=== PATIENT | female | born 1985 | race Caucasian/White ===

== ENCOUNTER 2016-10-21 23:52 | Emergency (ER) | payer BC, MEDICAID ==
[~2016-10-21] VITALS: Ht 165.1 cm; Wt 61.2 kg
--- NOTE | 2016-10-22 00:01 | NUR ---
31 yo female bb ra. pt is alert x 3, states she is homeless. per ems pt walked into store, saying she wants to hurt herself. EMS trasnported to [facility]. pt ambulated to er bed 9 with steady gait, skin warm and dry, rr even and unlabored. awaiting orders from provider, will continue to monitor.
--- NOTE | 2016-10-22 00:04 | NUR ---
urine sample obtained and sent to lab
--- NOTE | 2016-10-22 00:08 | NUR ---
patient belongings taken from pt and kept at nursing station
--- NOTE | 2016-10-22 00:10 | NUR ---
MEKA STEWART MD at bed side for eval
[2016-10-22] MEDS ORDERED: LORAZEPAM 1 MG TABLET ONE (01:10)
--- NOTE | 2016-10-22 01:13 | NUR ---
RECEIVED PT, PT TRANSFERED TO ER BED 6. PT STATES "I WANT TO KILL MY SELF BY ASSISTED SUICIDE." PT DENIES HI. PT AOX4 RR EVEN AND UNLABORED. NO SOB NOTED. NAD NOTED. NO NVD AT THIS TIME. PT IN GOWN AND CONNECTED TO MONITOR.
--- NOTE | 2016-10-22 01:14 | NUR ---
PT DENIES ANY PLANS AT THIS TIME.
--- NOTE | 2016-10-22 01:15 | NUR ---
PT NOTED WITH ANNA ARM DISCOLORATION AND RIGHT FA HEALED ABSCESS.
--- NOTE | 2016-10-22 01:17 | NUR ---
LAB AT BEDSIDE FOR BLOOD DRAW.
[2016-10-22 01:30] LABS: BASOPHILS # (AUTO) 0.1 /CMM (0.0-0.2); BASOPHILS % (AUTO) 0.8 % (0.0-2.0); EOSINOPHILS # (AUTO) 0.3 /CMM (0.0-0.7); EOSINOPHILS % (AUTO) 4.8 % (0.0-6.0); HEMATOCRIT 35 % (33-45); HEMOGLOBIN 12.1 g/dL (11.5-14.8); LYMPHOCYTES # (AUTO) 2.6 /CMM (0.8-4.8); LYMPHOCYTES % (AUTO) 38.3 % (20.0-44.0); MEAN CORPUSCULAR HEMOGLOBIN 31 PG (26.0-33.0); MEAN CORPUSCULAR HGB CONC 35 g/dl (31.0-36.0); MEAN CORPUSCULAR VOLUME 90 fL (82-100); MONOCYTES # (AUTO) 0.5 /CMM (0.1-1.30); NEUTROPHILS # (AUTO) 3.3 /CMM (1.8-8.9); NEUTROPHILS % (AUTO) 49.1 % (43.0-81.0); PLATELET COUNT (AUTO) 444 /CMM (150-450); RDW COEFFICIENT OF VARIATION 12.2 (11.5-15.0); RED BLOOD CELL COUNT(AUTO) 3.89 MIL/uL (4.0-5.2); WHITE BLOOD COUNT (AUTO) 6.7 K/uL (4.3-11.0)
[2016-10-22] MEDS ORDERED: LORAZEPAM 1 MG TABLET PO ONE (01:30)
[2016-10-22 01:47] LABS: ALANINE AMINOTRANSFERASE 22 U/L (12-78); ALKALINE PHOSPHATASE 66 U/L (46-116); ASPARTATE AMINOTRANSFERASE 18 U/L (15-37); BILIRUBIN,DIRECT 0.1 mg/dL (0.0-0.2); BILIRUBIN,TOTAL 0.4 mg/dL (0.2-1.0); CALCIUM, SERUM 8.5 mg/dL (8.5-10.1); CARBON DIOXIDE 27 mmol/L (21-32); CHLORIDE 106 mmol/L (98-107); CREATININE 0.8 mg/dL (0.6-1.3); GLUCOSE 88 mg/dL (74-106); POTASSIUM 3.3 mmol/L (3.5-5.1); SODIUM SERUM 142 mmol/L (136-145); TOTAL PROTEIN, SERUM 7.5 g/dL (6.4-8.2); UREA NITROGEN, BLOOD 4 mg/dL (7-18)
[2016-10-22 01:53] LABS: ACETAMINOPHEN 0 ug/ml (10-30); SALICYLATE 1.6 mg/dL (2.8-20.0)
[2016-10-22 01:54] LABS: ALCOHOL, BLOOD < 3 mg/dL (0-0)
--- NOTE | 2016-10-22 03:23 | NUR ---
Patient is resting comfortably in bed with eyes closed. Easily aroused. VSS
[2016-10-22 03:51] LABS: APPEARANCE,URINE CLEAR (CLEAR); BILIRUBIN,URINE NEGATIVE (NEGATIVE); BLOOD, URINE 3+ Ery/uL (NEGATIVE); COLOR,URINE YELLOW (YELLOW); KETONES,URINE NEGATIVE (NEGATIVE); LEUKOCYTE ESTERASE ,URINE NEGATIVE (NEGATIVE); NITRITE, URINE NEGATIVE (NEGATIVE); PROTEIN,URINE NEGATIVE (NEGATIVE); UGLUCOSE NEGATIVE (NEGATIVE); UROBILINOGEN,URINE 0.2 EU/dL (0.2)
[2016-10-22 03:56] LABS: BACTERIA,URINE None seen /HPF (None Seen); RBC,URINE 0-2 /HPF (0-2); SQUAMOUS EPITHELIAL CELL,UR Moderate /HPF (None Seen); WBC,URINE 0-2 /HPF (0-3)
--- NOTE | 2016-10-22 04:25 | NUR ---
ART AT BEDSIDE FOR EVAL.
[2016-10-22] MEDS ORDERED: POTASSIUM CHLORIDE 20 MEQ TAB.PRT.SR PO ONE ×2 (05:06→05:30)
--- NOTE | 2016-10-22 05:18 | NUR ---
Macario moise in [facility] - 10/22/16 at 0518 by BRITTANY PT PLACES ON 3270 HOLD PER ART
--- NOTE | 2016-10-22 05:18 | NUR ---
PT PLACED ON 5150 HOLD PER ART
--- NOTE | 2016-10-22 05:53 | NUR ---
pt accepted to [facility] by dr Leija. # for report [phone]
--- NOTE | 2016-10-22 06:15 | NUR ---
John called for transport ETA [id number]
--- NOTE | 2016-10-22 06:20 | NUR ---
CALLED [facility], . NO ANSWER. UNABLE TO LEAVE A MESSAGE.
--- NOTE | 2016-10-22 06:25 | NUR ---
REPORT GIVEN TO AYAN LEWIS FROM [facility], .
[2016-10-22 06:42] VITALS: BP 126/81
--- NOTE | 2016-10-22 06:46 | NUR ---
REPORT GIVEN TO MED RESPONSE, PT AWARE OF TRANSFER AND WITH ALL BELONGINGS. VSS. ORIGINAL 5150 HOLD AND TRANSFER PAPERS WITH BUSINESS STRATEGIST. BUSINESS STRATEGIST TOOK OVER CARE. PT TRANSFERED VIA [facility] TO [facility].
== END 2016-10-22 06:48 ==
LOC: ER 23:56
DX: R45.851 Suicidal ideations (principal); E87.6 Hypokalemia; F11.10 Opioid abuse, uncomplicated; F12.10 Cannabis abuse, uncomplicated; F31.9 Bipolar disorder, unspecified
CPT/HCPCS: 36415; 80048; 80076; 80305; 80329; 81001; 85025; 93005; 99285; A4606; G0480 ×2; Z7610; 81000-TC; G6039-TC

== ENCOUNTER 2017-12-23 05:33 | Emergency (ER) | payer BC, OTHER ==
[~2017-12-23] VITALS: Ht 167.6 cm; Wt 59.0 kg
--- NOTE | 2017-12-23 05:45 | NUR ---
URINE SPECIMEN OBTAINED AND SENT TO THE LAB.
--- NOTE | 2017-12-23 05:49 | NUR ---
PT AMBULATORY TO ER BED 6. BIB [employer] FROM [address]RE[address] C/O "WANTING TO OVERDOSE" +SI/-HI. PT PLACED ON BEAMING INSPECTOR. VSS/RESP EVEN UNLABORED/NAD NOTED/SKIN WARM AND DRY/AFEBRILE/DENIES N-V-D/AOX4. AWAITNG MD LAGOS.
--- NOTE | 2017-12-23 05:52 | NUR ---
LAB AT BEDSIDE FOR DRAW.
[2017-12-23] MEDS ORDERED: clonazePAM 1 MG TABLET ONE (06:15)
[2017-12-23 06:18] LABS: CALCIUM, SERUM 8.6 mg/dL (8.5-10.1); CARBON DIOXIDE 25 mmol/L (21-32); CHLORIDE 101 mmol/L (98-107); CREATININE 0.8 mg/dL (0.6-1.3); GLUCOSE 109 mg/dL (74-106); POTASSIUM 3.3 mmol/L (3.5-5.1); SODIUM SERUM 138 mmol/L (136-145); UREA NITROGEN, BLOOD 17 mg/dL (7-18)
[2017-12-23 06:19] LABS: BASOPHILS % (AUTO) 0.3 % (0.0-2.0); EOSINOPHILS % (AUTO) 0.4 % (0.0-6.0); HEMATOCRIT 38 % (33-45); LYMPHOCYTES # (AUTO) 1.8 /CMM (0.8-4.8); LYMPHOCYTES % (AUTO) 13.6 % (20.0-44.0); MEAN CORPUSCULAR HEMOGLOBIN 32 PG (26.0-33.0); MEAN CORPUSCULAR HGB CONC 34 g/dl (31.0-36.0); MEAN CORPUSCULAR VOLUME 94 fL (82-100); MONOCYTES % (AUTO) 7.4 % (2.0-12.0); NEUTROPHILS # (AUTO) 10.4 /CMM (1.8-8.9); NEUTROPHILS % (AUTO) 78.3 % (43.0-81.0); PLATELET COUNT (AUTO) 302 /CMM (150-450); RDW COEFFICIENT OF VARIATION 12.8 (11.5-15.0); RED BLOOD CELL COUNT(AUTO) 4.08 MIL/uL (4.0-5.2); WHITE BLOOD COUNT (AUTO) 13.3 K/uL (4.3-11.0)
[2017-12-23 06:19] LABS: APPEARANCE,URINE CLOUDY (CLEAR); BILIRUBIN,URINE NEGATIVE (NEGATIVE); BLOOD, URINE NEGATIVE Ery/uL (NEGATIVE); COLOR,URINE DARK YELLO (YELLOW); KETONES,URINE TRACE (NEGATIVE); LEUKOCYTE ESTERASE ,URINE NEGATIVE (NEGATIVE); NITRITE, URINE NEGATIVE (NEGATIVE); PROTEIN,URINE TRACE mg/dl (NEGATIVE); UGLUCOSE NEGATIVE (NEGATIVE); UROBILINOGEN,URINE 0.2 EU/dL (0.2)
[2017-12-23 06:24] LABS: ACETAMINOPHEN 0 ug/ml (10-30); ALANINE AMINOTRANSFERASE 23 U/L (12-78); ALBUMIN 4.3 g/dL (3.4-5.0); ALCOHOL, BLOOD < 3 mg/dL (0-0); ALKALINE PHOSPHATASE 67 U/L (46-116); ASPARTATE AMINOTRANSFERASE 27 U/L (15-37); BILIRUBIN,DIRECT 0.2 mg/dL (0.0-0.2); BILIRUBIN,TOTAL 1.1 mg/dL (0.2-1.0); SALICYLATE 0.3 mg/dL (2.8-20.0); TOTAL PROTEIN, SERUM 7.8 g/dL (6.4-8.2)
[2017-12-23 06:26] LABS: BACTERIA,URINE Moderate /HPF (None Seen); RBC,URINE 0-2 /HPF (0-2); SQUAMOUS EPITHELIAL CELL,UR Moderate /HPF (None Seen)
[2017-12-23 06:27] LABS: MUCUS,URINE Moderate /LPF (None Seen)
[2017-12-23] MEDS ORDERED: clonazePAM 1 MG TABLET PO ONE (06:30)
[2017-12-23] MEDS ORDERED: IBUPROFEN 400 MG TABLET ONE (06:50)
[2017-12-23] MEDS ORDERED: IBUPROFEN 400 MG TABLET PO ONE (07:00)
--- NOTE | 2017-12-23 07:15 | NUR ---
ENDORSED TO AYAN JOHNSTON FOR [facility]IRA.
[2017-12-23] MEDS ORDERED: NITROFURANTOIN/NITROFURAN MAC 100 MG CAPSULE PO ONE (07:30)
[2017-12-23] MEDS ORDERED: NITROFURANTOIN/NITROFURAN MAC 100 MG CAPSULE ONE (07:30)
--- NOTE | 2017-12-23 08:00 | NUR ---
CALLED AYAN VALENCIA FOR PSYCH EVAL.
--- NOTE | 2017-12-23 08:10 | NUR ---
KELLY RN AT BEDSIDE FOR PSYCH EVAL.
[2017-12-23] MEDS ORDERED: OLANZAPINE 5 MG TABLET PO ONE (08:30)
[2017-12-23] MEDS ORDERED: OLANZAPINE 5 MG TABLET ONE (08:36)
--- NOTE | 2017-12-23 09:20 | NUR ---
Patient is resting comfortably in bed with eyes closed. Easily aroused. VSS
--- NOTE | 2017-12-23 10:05 | NUR ---
PATIENT WAS PROVIDED WITH SHOES.
--- NOTE | 2017-12-23 10:36 | NUR ---
Patient discharged to home in stable condition. Written and verbal after care instructions given. Patient verbalizes understanding of instruction.
[2017-12-23 10:43] VITALS: BP 128/84
== END 2017-12-23 10:44 | disposition home or self-care (01) ==
LOC: ER 05:35
DX: F31.9 Bipolar disorder, unspecified (principal); N39.0 Urinary tract infection, site not specified
CPT/HCPCS: 36415; 80048; 80076; 80305; 80329; 81001; 84703; 85025; 87086; 99284; A4606; G0480 ×2; Z7610; 81000-TC